=== PATIENT | female | born 1995 | race African-American/Black ===

== ENCOUNTER 2023-06-21 08:38 | Outpatient (OUT) | payer OTHER, SELFPAY ==
--- NOTE | 2023-06-21 08:45 | XR_ITS ---
The [address] [address] Patient Name: RITU WOOTEN MRN: [id number] date: 1995 Sex: F Assigned Patient Location: RAD Current Patient Location: RAD Accession/Order Number: [id number] Exam Date: 06/21/2023 08:55 Report Date: 06/21/2023 11:34 At the request of: EBONIE HOLT Procedure: XR ankle RT min 3V EXAM: XR ankle RT min 3V HISTORY: Right Ankle Pain, Right Ankle Injury COMPARISON: None TECHNIQUE: 3 views of the right ankle were obtained. FINDINGS: Ankle mortise appears grossly intact. No definite acute fracture or dislocation. Mild soft tissue swelling suggested medially. XR/XR ankle RT min 3V IMPRESSION: Right ankle study fails to demonstrate definite acute fracture or dislocation. Follow-up as needed. Electronically authenticated by: RONNY SON Date: 06/21/2023 11:34
== END 2023-06-21 08:39 | disposition home or self-care (01) ==
LOC: RAD 08:42
PROVIDERS: Visit Provider Nurse Practitioner Primary Care
DX: M25.571 Pain in right ankle and joints of right foot (principal)
CPT/HCPCS: 73610